=== PATIENT | male | born 1960 | race Caucasian/White ===

== ENCOUNTER 2023-04-24 04:50 | Inpatient (IN) | payer OTHER ==
[2023-04-24] VITALS (10 sets, daily range): BP systolic 163–203; BP diastolic 79–135
[~2023-04-24] VITALS: Ht 177.8 cm; Wt 126.7 kg
[2023-04-24 06:06] LABS: HEMATOCRIT 46.2 % (42.0-52.0); MEAN CELL VOLUME 88.2 fl (80.0-94.0); MEAN CORPUSCULAR HGB 28.2 pg (27.0-31.0); PLATELET COUNT AUTOMATED 129 10*3/uL (130-400); RED BLOOD COUNT 5.24 10*6/uL (4.50-5.90); RED CELL DISTRI WIDTH 17.5 % (0-14.5); WHITE BLOOD COUNT 10.8 10*3/uL (4.8-10.8)
[2023-04-24 06:07] LABS: ALKALINE PHOSPHATASE 84 U/L (46-116); BUN 23 mg/dl (9-23); CHLORIDE 102 mmol/L (98-107); LIPASE 43 U/L (12-53); POTASSIUM 4.1 mmol/L (3.4-5.1); SGPT/ALT 27 U/L (10-49); TOTAL PROTEIN 6.9 gm/dL (6.0-8.0)
[2023-04-24 06:12] LABS: BILIRUBIN Negative (Negative); BLOOD 1+ (Negative); CLARITY Clear (Clear); COLOR Dark Yellow (Yellow); GLUCOSE Negative (Negative); KETONE Trace (Negative); LEUKO ESTERASE Negative (Negative); NITRITE Negative (Negative); SPECIFIC GRAVITY 1.025 (1.001-1.030)
[2023-04-24 06:31] LABS: ACT PARTIAL THROMBO TIME 29.7 SECONDS (20.0-32.1); INTERNATIONAL NORM RATIO 1.3 (2.0-3.5)
[2023-04-24 06:38] LABS: BACTERIA 3+; RBC 21-30 rbc/hpf (0-2); URIC ACID CRYSTALS 1+
[2023-04-24 06:39] LABS: FINE GRANULAR CAST 16-20
[2023-04-24 06:51] LABS: BURR CELLS FEW; PLATELET SUFFICIENCY LOW (NORMAL); TOTAL CELLS COUNTED 100 #CELLS
[2023-04-24 06:52] LABS: MANUAL DIFF REFLEX YES
[2023-04-25] VITALS: BP 156/126
[2023-04-25 03:40] VITALS: BP 160/101
[2023-04-25 06:20] VITALS: BP 156/106
[2023-04-25 06:21] LABS: BASO % 0.4 % (0.0-1.0); EOS # 0.1 10*3/uL (0.0-0.4); EOS % 0.8 % (1.0-4.0); HEMATOCRIT 45.1 % (42.0-52.0); LYMPH % 9.8 % (27.0-41.0); MEAN CELL VOLUME 85.7 fl (80.0-94.0); MEAN CORPUSCULAR HGB 27.9 pg (27.0-31.0); MEAN CORPUSCULAR HGB CONC 32.6 g/dl (33.0-37.0); MEAN PLATELET VOLUME 12.8 fl (9.6-12.3); MONO % 9.6 % (3.0-9.0); NEUT # 8.1 10*3/uL (2.3-7.9); NEUT % 79.1 % (47.0-73.0); PLATELET COUNT AUTOMATED 123 10*3/uL (130-400); RED BLOOD COUNT 5.26 10*6/uL (4.50-5.90); RED CELL DISTRI WIDTH 17.8 % (0-14.5); WHITE BLOOD COUNT 10.2 10*3/uL (4.8-10.8)
[2023-04-25 06:54] LABS: ALKALINE PHOSPHATASE 75 U/L (46-116); BUN 18 mg/dl (9-23); CHLORIDE 98 mmol/L (98-107); CHOLESTEROL 119 mg/dL (<200); FREE T4 1.12 ng/dl (0.89-1.76); LDL CHOLESTEROL 78 mg/dL (9-159); POTASSIUM 3.4 mmol/L (3.4-5.1); SGPT/ALT 22 U/L (10-49); TOTAL PROTEIN 6.4 gm/dL (6.0-8.0); TRIGLYCERIDES 46 mg/dl (<150)
[2023-04-25 08:00] VITALS: BP 162/110
[2023-04-25 08:05] LABS: VITAMIN D, 25-HYDROXY 20.7 ng/mL (30-100)
[2023-04-25 16:00] VITALS: BP 144/102
[2023-04-25 20:00] VITALS: BP 148/95
[2023-04-26] VITALS: BP 135/85
[2023-04-26 07:35] LABS: HEMATOCRIT 48.7 % (42.0-52.0); MEAN CELL VOLUME 86.7 fl (80.0-94.0); MEAN CORPUSCULAR HGB 27.9 pg (27.0-31.0); MEAN CORPUSCULAR HGB CONC 32.2 g/dl (33.0-37.0); MEAN PLATELET VOLUME 13.4 fl (9.6-12.3); PLATELET COUNT AUTOMATED 145 10*3/uL (130-400); RED BLOOD COUNT 5.62 10*6/uL (4.50-5.90); RED CELL DISTRI WIDTH 17.6 % (0-14.5); WHITE BLOOD COUNT 9.8 10*3/uL (4.8-10.8)
[2023-04-26 07:42] LABS: BUN 17 mg/dl (9-23); CHLORIDE 98 mmol/L (98-107); POTASSIUM 3.3 mmol/L (3.4-5.1)
[2023-04-26 07:46] LABS: MANUAL DIFF REFLEX YES
[2023-04-26 08:00] VITALS: BP 124/69
[2023-04-26 08:37] LABS: PLATELET SUFFICIENCY NORMAL (NORMAL); TOTAL CELLS COUNTED 100 #CELLS
[2023-04-26 12:00] VITALS: BP 106/79
[2023-04-26 16:00] VITALS: BP 136/66
[2023-04-26 20:00] VITALS: BP 129/85
[2023-04-27] VITALS: BP 135/95
[2023-04-27 07:47] LABS: BUN 16 mg/dl (9-23); CHLORIDE 99 mmol/L (98-107); POTASSIUM 3.7 mmol/L (3.4-5.1)
[2023-04-27 08:00] VITALS: BP 146/75
[2023-04-27 12:00] VITALS: BP 121/66
[2023-04-27 16:00] VITALS: BP 137/92
[2023-04-27 20:00] VITALS: BP 137/92
[2023-04-28] VITALS: BP 138/95
[2023-04-28 06:36] LABS: HEMATOCRIT 48.5 % (42.0-52.0); MEAN CELL VOLUME 87.1 fl (80.0-94.0); MEAN CORPUSCULAR HGB 27.8 pg (27.0-31.0); MEAN PLATELET VOLUME 13.6 fl (9.6-12.3); PLATELET COUNT AUTOMATED 154 10*3/uL (130-400); RED BLOOD COUNT 5.57 10*6/uL (4.50-5.90); RED CELL DISTRI WIDTH 17.6 % (0-14.5); WHITE BLOOD COUNT 7.9 10*3/uL (4.8-10.8)
[2023-04-28 07:01] LABS: BUN 17 mg/dl (9-23); CHLORIDE 100 mmol/L (98-107); POTASSIUM 3.6 mmol/L (3.4-5.1)
[2023-04-28 07:46] LABS: BASOPHILS 1 % (0-1); PLATELET SUFFICIENCY NORMAL (NORMAL); TOTAL CELLS COUNTED 100 #CELLS
[2023-04-28 08:00] VITALS: BP 146/93
[2023-04-28 10:25] LABS: MANUAL DIFF REFLEX YES
[2023-04-28 12:00] VITALS: BP 133/75
[2023-04-28] MEDS ORDERED: ATORVASTATIN CA20 M1 PO (14:09)
[2023-04-28] MEDS ORDERED: JARDIANCE10 MG PO (14:09)
[2023-04-28] MEDS ORDERED: XARELTO1 EACH PO (14:09)
[2023-04-28] MEDS ORDERED: VITAMIN D350 MCG PO (14:09)
[2023-04-28] MEDS ORDERED: METOPROLOL SUC100 M1 PO (14:09)
[2023-04-28] MEDS ORDERED: ASPIRIN ADULT L81 M2 PO (14:09)
[2023-04-28] MEDS ORDERED: ALDACTONE25 MG PO (14:09)
[2023-04-28] MEDS ORDERED: FUROSEMIDE40 MG PO (14:09)
[2023-04-28] MEDS ORDERED: LOSARTAN POTAS100 M1 PO (14:15)
[2023-04-28 16:00] VITALS: BP 136/86
== END 2023-04-28 18:25 | disposition home or self-care (01) | DRG 291 ==
LOC: ED 04:50 → 4E 06:48 → EDHOLD 06:48 → 4E 20:32
PROVIDERS: Internal Medicine; Registered Nurse; Student in an Organized Health Care Education/Training Program; ADMIT Internal Medicine; ATTEND Internal Medicine
PROC: 4A02XM4 Measurement of Cardiac Total Activity, External Approach (ICD-10-PCS; principal; 2023-04-25)
PROC: 3E073KZ Introduction of Other Diagnostic Substance into Coronary Artery, Percutaneous Approach (ICD-10-PCS; 2023-04-25)
DX: I11.0 Hypertensive heart disease with heart failure (principal); I26.94 Multiple subsegmental thrombotic pulmonary emboli without acute cor pulmonale; I50.23 Acute on chronic systolic (congestive) heart failure; J18.9 Pneumonia, unspecified organism; N17.0 Acute kidney failure with tubular necrosis; N39.0 Urinary tract infection, site not specified; I82.412 Acute embolism and thrombosis of left femoral vein; I47.29 Other ventricular tachycardia; Z68.41 Body mass index [BMI] 40.0-44.9, adult; I16.0 Hypertensive urgency; E87.6 Hypokalemia; E66.01 Morbid (severe) obesity due to excess calories; E11.65 Type 2 diabetes mellitus with hyperglycemia; Z79.899 Other long term (current) drug therapy

== ENCOUNTER 2023-09-04 14:39 | Inpatient (IN) | payer OTHER ==
[~2023-09-04] VITALS: Ht 177.8 cm; Wt 135.2 kg
[2023-09-04] VITALS (9 sets, daily range): BP systolic 157–178; BP diastolic 82–115
[~2023-09-04 14:39] MED LIST: ALDACTONE25 MG PO; ASPIRIN ADULT L81 M2 PO; ATORVASTATIN CA20 M1 PO; FUROSEMIDE40 MG PO; JARDIANCE10 MG PO; LOSARTAN POTAS100 M1 PO; METOPROLOL SUC100 M1 PO; VITAMIN D350 MCG PO; XARELTO1 EACH PO
[2023-09-04 15:23] LABS: BASO # 0.1 10*3/uL (0.0-0.1); BASO % 0.9 % (0.0-1.0); EOS # 0.1 10*3/uL (0.0-0.4); EOS % 0.7 % (1.0-4.0); HEMATOCRIT 48.1 % (42.0-52.0); LYMPH # 0.6 10*3/uL (1.3-4.4); LYMPH % 7.1 % (27.0-41.0); MEAN CELL VOLUME 94.9 fl (80.0-94.0); MEAN CORPUSCULAR HGB 28.4 pg (27.0-31.0); MEAN CORPUSCULAR HGB CONC 29.9 g/dl (33.0-37.0); MEAN PLATELET VOLUME 12.6 fl (9.6-12.3); MONO # 0.5 10*3/uL (0.1-1.0); MONO % 5.6 % (3.0-9.0); NEUT # 7.5 10*3/uL (2.3-7.9); NEUT % 85.2 % (47.0-73.0); PLATELET COUNT AUTOMATED 196 10*3/uL (130-400); RED BLOOD COUNT 5.07 10*6/uL (4.50-5.90); RED CELL DISTRI WIDTH 16.7 % (0-14.5); WHITE BLOOD COUNT 8.8 10*3/uL (4.8-10.8)
[2023-09-04 15:38] LABS: ALKALINE PHOSPHATASE 75 U/L (46-116); BUN 21 mg/dl (9-23); CHLORIDE 102 mmol/L (98-107); POTASSIUM 4.5 mmol/L (3.4-5.1); SGPT/ALT 13 U/L (5-49)
[2023-09-04 15:59] LABS: ACT PARTIAL THROMBO TIME 26.3 SECONDS (20.0-32.1)
[2023-09-04] MEDS ORDERED: METOPROLOL SUCC50 M1 PO (16:52)
[2023-09-04] MEDS ORDERED: LASIX40 MG PO (16:52)
[2023-09-04] MEDS ORDERED: LOSARTAN POTAS100 M1 PO (16:52)
[2023-09-04] MEDS ORDERED: ALDACTONE25 M1 PO (16:53)
[2023-09-05] VITALS (8 sets, daily range): BP systolic 121–170; BP diastolic 68–115
[2023-09-05 06:15] LABS: HEMATOCRIT 48.1 % (42.0-52.0); MEAN CORPUSCULAR HGB 27.9 pg (27.0-31.0); MEAN CORPUSCULAR HGB CONC 30.4 g/dl (33.0-37.0); MEAN PLATELET VOLUME 12.4 fl (9.6-12.3); PLATELET COUNT AUTOMATED 214 10*3/uL (130-400); RED BLOOD COUNT 5.23 10*6/uL (4.50-5.90); RED CELL DISTRI WIDTH 16.4 % (0-14.5)
[2023-09-05 06:22] LABS: ALKALINE PHOSPHATASE 71 U/L (46-116); BUN 21 mg/dl (9-23); CHLORIDE 102 mmol/L (98-107); CHOLESTEROL 136 mg/dL (<200); FREE T4 0.98 ng/dl (0.89-1.76); LDL CHOLESTEROL 96 mg/dL (9-159); POTASSIUM 4.5 mmol/L (3.4-5.1); SGPT/ALT 11 U/L (5-49); TOTAL PROTEIN 7.1 gm/dL (6.0-8.0); TRIGLYCERIDES 64 mg/dl (<150)
[2023-09-05 06:25] LABS: MANUAL DIFF REFLEX YES
[2023-09-05 06:28] LABS: ACT PARTIAL THROMBO TIME 27.4 SECONDS (20.0-32.1)
[2023-09-05 07:24] LABS: VITAMIN D, 25-HYDROXY 16.6 ng/mL (30-100)
[2023-09-05 07:33] LABS: ATYPICAL LYMPHS 1 % (0-0); PLATELET SUFFICIENCY NORMAL (NORMAL); TOTAL CELLS COUNTED 100 #CELLS
[2023-09-05 13:17] LABS: ABG BASE EXCESS 5.1 mmol/L (-2.0-2.0); ARTERIAL BLOOD GAS PH 7.421 (7.35-7.45)
[2023-09-05 16:16] LABS: BF LYMPHOCYTES 10 %; BF MACROPHAGES 46 %; BF MESOTHELIALS 2 %; BF NEUTROPHILS 42 %
[2023-09-06] VITALS: BP 149/86
[2023-09-06 05:18] LABS: BUN 21 mg/dl (9-23); CHLORIDE 100 mmol/L (98-107); POTASSIUM 3.6 mmol/L (3.4-5.1)
[2023-09-06 06:18] LABS: BASO % 0.4 % (0.0-1.0); EOS # 0.1 10*3/uL (0.0-0.4); EOS % 0.6 % (1.0-4.0); HEMATOCRIT 45.6 % (42.0-52.0); LYMPH # 0.9 10*3/uL (1.3-4.4); LYMPH % 11.2 % (27.0-41.0); MEAN CELL VOLUME 91.6 fl (80.0-94.0); MEAN CORPUSCULAR HGB 27.9 pg (27.0-31.0); MEAN CORPUSCULAR HGB CONC 30.5 g/dl (33.0-37.0); MEAN PLATELET VOLUME 12.3 fl (9.6-12.3); MONO # 0.7 10*3/uL (0.1-1.0); MONO % 8.7 % (3.0-9.0); NEUT # 6.4 10*3/uL (2.3-7.9); NEUT % 78.9 % (47.0-73.0); PLATELET COUNT AUTOMATED 162 10*3/uL (130-400); RED BLOOD COUNT 4.98 10*6/uL (4.50-5.90); RED CELL DISTRI WIDTH 16.6 % (0-14.5); WHITE BLOOD COUNT 8.2 10*3/uL (4.8-10.8)
[2023-09-06 08:00] VITALS: BP 135/86
[2023-09-06 12:00] VITALS: BP 142/77
[2023-09-06 16:00] VITALS: BP 128/73
[2023-09-06 20:00] VITALS: BP 132/74
[2023-09-07] VITALS: BP 139/76
[2023-09-07 05:38] LABS: ALKALINE PHOSPHATASE 58 U/L (46-116); BUN 22 mg/dl (9-23); CHLORIDE 99 mmol/L (98-107); LDH 171 U/L (120-246); POTASSIUM 3.7 mmol/L (3.4-5.1); SGPT/ALT 11 U/L (5-49); TOTAL PROTEIN 6.2 gm/dL (6.0-8.0)
[2023-09-07 06:15] LABS: HEMATOCRIT 43.8 % (42.0-52.0); MEAN CELL VOLUME 92.6 fl (80.0-94.0); MEAN CORPUSCULAR HGB 27.7 pg (27.0-31.0); MEAN CORPUSCULAR HGB CONC 29.9 g/dl (33.0-37.0); MEAN PLATELET VOLUME 12.7 fl (9.6-12.3); PLATELET COUNT AUTOMATED 179 10*3/uL (130-400); RED BLOOD COUNT 4.73 10*6/uL (4.50-5.90); RED CELL DISTRI WIDTH 16.5 % (0-14.5); WHITE BLOOD COUNT 6.4 10*3/uL (4.8-10.8)
[2023-09-07 06:54] LABS: MANUAL DIFF REFLEX YES
[2023-09-07 06:57] LABS: BASOPHILS 1 % (0-1); PLATELET SUFFICIENCY NORMAL (NORMAL); TOTAL CELLS COUNTED 100 #CELLS
[2023-09-07 06:58] LABS: OVALOCYTES FEW
[2023-09-07 08:00] VITALS: BP 139/91
[2023-09-07 12:00] VITALS: BP 121/82
[2023-09-07 16:00] VITALS: BP 124/77
[2023-09-07 20:00] VITALS: BP 140/82
[2023-09-08] VITALS: BP 150/84; BP 160/90
[2023-09-08 06:27] LABS: BASO # 0.1 10*3/uL (0.0-0.1); BASO % 1.1 % (0.0-1.0); EOS # 0.2 10*3/uL (0.0-0.4); EOS % 3.2 % (1.0-4.0); HEMATOCRIT 46.3 % (42.0-52.0); LYMPH % 17.7 % (27.0-41.0); MEAN CELL VOLUME 94.1 fl (80.0-94.0); MEAN CORPUSCULAR HGB CONC 29.8 g/dl (33.0-37.0); MEAN PLATELET VOLUME 12.6 fl (9.6-12.3); MONO # 0.5 10*3/uL (0.1-1.0); MONO % 8.9 % (3.0-9.0); NEUT # 3.9 10*3/uL (2.3-7.9); NEUT % 68.6 % (47.0-73.0); PLATELET COUNT AUTOMATED 168 10*3/uL (130-400); RED BLOOD COUNT 4.92 10*6/uL (4.50-5.90); RED CELL DISTRI WIDTH 16.3 % (0-14.5); WHITE BLOOD COUNT 5.7 10*3/uL (4.8-10.8)
[2023-09-08 06:32] LABS: BUN 17 mg/dl (9-23); CHLORIDE 99 mmol/L (98-107); POTASSIUM 3.9 mmol/L (3.4-5.1)
[2023-09-08 08:00] VITALS: BP 160/87
[2023-09-08 12:00] VITALS: BP 135/79
[2023-09-08 16:00] VITALS: BP 134/76
[2023-09-08 20:00] VITALS: BP 138/70
[2023-09-09] VITALS: BP 161/90
[2023-09-09 05:47] LABS: BUN 18 mg/dl (9-23); CHLORIDE 97 mmol/L (98-107); POTASSIUM 4.2 mmol/L (3.4-5.1)
[2023-09-09 06:28] LABS: HEMATOCRIT 43.8 % (42.0-52.0); MEAN CELL VOLUME 93.4 fl (80.0-94.0); MEAN CORPUSCULAR HGB 27.9 pg (27.0-31.0); MEAN CORPUSCULAR HGB CONC 29.9 g/dl (33.0-37.0); MEAN PLATELET VOLUME 13.5 fl (9.6-12.3); PLATELET COUNT AUTOMATED 128 10*3/uL (130-400); RED BLOOD COUNT 4.69 10*6/uL (4.50-5.90); RED CELL DISTRI WIDTH 16.3 % (0-14.5); WHITE BLOOD COUNT 5.2 10*3/uL (4.8-10.8)
[2023-09-09 06:29] LABS: MANUAL DIFF REFLEX YES
[2023-09-09 07:43] LABS: BURR CELLS FEW; PLATELET SUFFICIENCY LOW (NORMAL); POLYCHROMASIA SLIGHT; TOTAL CELLS COUNTED 100 #CELLS
[2023-09-09 08:00] VITALS: BP 148/79
[2023-09-09 12:00] VITALS: BP 151/90
[2023-09-09 16:00] VITALS: BP 156/87
[2023-09-09 20:00] VITALS: BP 138/85
[2023-09-10] VITALS: BP 153/88
[2023-09-10 04:48] LABS: BUN 17 mg/dl (9-23); CHLORIDE 98 mmol/L (98-107); POTASSIUM 4.3 mmol/L (3.4-5.1)
[2023-09-10 06:34] LABS: BASO % 0.7 % (0.0-1.0); EOS # 0.2 10*3/uL (0.0-0.4); EOS % 3.2 % (1.0-4.0); HEMATOCRIT 42.9 % (42.0-52.0); LYMPH % 17.4 % (27.0-41.0); MEAN CELL VOLUME 93.5 fl (80.0-94.0); MEAN CORPUSCULAR HGB 28.5 pg (27.0-31.0); MEAN CORPUSCULAR HGB CONC 30.5 g/dl (33.0-37.0); MEAN PLATELET VOLUME 12.7 fl (9.6-12.3); MONO # 0.5 10*3/uL (0.1-1.0); NEUT % 70.2 % (47.0-73.0); PLATELET COUNT AUTOMATED 101 10*3/uL (130-400); RED BLOOD COUNT 4.59 10*6/uL (4.50-5.90); RED CELL DISTRI WIDTH 16.5 % (0-14.5); WHITE BLOOD COUNT 5.6 10*3/uL (4.8-10.8)
[2023-09-10 08:00] VITALS: BP 148/82
[2023-09-10 12:00] VITALS: BP 140/80
[2023-09-10 20:00] VITALS: BP 149/96
[2023-09-10 21:03] LABS: BILIRUBIN Negative (Negative); BLOOD Negative (Negative); CLARITY Clear (Clear); COLOR Yellow (Yellow); GLUCOSE Negative (Negative); KETONE Negative (Negative); LEUKO ESTERASE Negative (Negative); NITRITE Negative (Negative)
[2023-09-10 21:06] LABS: PH 8.5 (4.5-8.0)
[2023-09-10 21:14] LABS: BACTERIA 1+; RBC 0-2 rbc/hpf (0-2)
[2023-09-10 21:15] LABS: FINE GRANULAR CAST 0-2
[2023-09-11] VITALS: BP 156/93
[2023-09-11 05:59] LABS: BUN 16 mg/dl (9-23); CHLORIDE 98 mmol/L (98-107)
[2023-09-11 06:32] LABS: BASO # 0.1 10*3/uL (0.0-0.1); BASO % 0.9 % (0.0-1.0); EOS # 0.1 10*3/uL (0.0-0.4); EOS % 2.3 % (1.0-4.0); HEMATOCRIT 42.2 % (42.0-52.0); LYMPH % 18.1 % (27.0-41.0); MEAN CORPUSCULAR HGB 28.4 pg (27.0-31.0); MEAN CORPUSCULAR HGB CONC 30.6 g/dl (33.0-37.0); MEAN PLATELET VOLUME 12.7 fl (9.6-12.3); MONO # 0.6 10*3/uL (0.1-1.0); MONO % 10.3 % (3.0-9.0); NEUT # 3.8 10*3/uL (2.3-7.9); RED BLOOD COUNT 4.54 10*6/uL (4.50-5.90); RED CELL DISTRI WIDTH 16.7 % (0-14.5); WHITE BLOOD COUNT 5.6 10*3/uL (4.8-10.8)
[2023-09-11 06:56] LABS: PLATELET COUNT AUTOMATED 131 10*3/uL (130-400)
[2023-09-11 08:00] VITALS: BP 131/80
[2023-09-11 12:00] VITALS: BP 124/84
[2023-09-11 16:00] VITALS: BP 142/89
[2023-09-11 20:00] VITALS: BP 126/71
[2023-09-11 22:55] LABS: BUN 18 mg/dl (9-23); CHLORIDE 101 mmol/L (98-107); POTASSIUM 4.3 mmol/L (3.4-5.1)
[2023-09-12] VITALS: BP 118/74
[2023-09-12 05:05] LABS: BUN 17 mg/dl (9-23); CHLORIDE 100 mmol/L (98-107); POTASSIUM 4.4 mmol/L (3.4-5.1)
[2023-09-12 08:08] VITALS: BP 151/99
[2023-09-12 12:00] VITALS: BP 140/83
[2023-09-12 16:00] VITALS: BP 139/95
[2023-09-12 20:00] VITALS: BP 131/64
[2023-09-13] VITALS: BP 151/93
[2023-09-13 04:46] LABS: BUN 19 mg/dl (9-23); CHLORIDE 101 mmol/L (98-107); POTASSIUM 4.5 mmol/L (3.4-5.1)
[2023-09-13 08:00] VITALS: BP 140/91
[2023-09-13 12:00] VITALS: BP 132/68
[2023-09-13] MEDS ORDERED: ALDACTONE50 M1 PO (13:30)
[2023-09-13] MEDS ORDERED: OXYCODONE HCL5 M1 PO (13:35)
== END 2023-09-13 14:36 | disposition home or self-care (01) | DRG 291 ==
LOC: ED 14:39 → EDHOLD 09-05 04:24 → 5E 09-05 04:24
PROVIDERS: Family Medicine; Internal Medicine; Internal Medicine Critical Care Medicine; Student in an Organized Health Care Education/Training Program; ADMIT Family Medicine; ATTEND Family Medicine
PROC: 5A09357 Assistance with Respiratory Ventilation, Less than 24 Consecutive Hours, Continuous Positive Airway Pressure (ICD-10-PCS; principal; 2023-09-05)
PROC: 0W9B30Z Drainage of Left Pleural Cavity with Drainage Device, Percutaneous Approach (ICD-10-PCS; 2023-09-05)
DX: I50.23 Acute on chronic systolic (congestive) heart failure (principal); J96.01 Acute respiratory failure with hypoxia; J91.8 Pleural effusion in other conditions classified elsewhere; E44.0 Moderate protein-calorie malnutrition; I27.82 Chronic pulmonary embolism; I82.502 Chronic embolism and thrombosis of unspecified deep veins of left lower extremity; Z68.41 Body mass index [BMI] 40.0-44.9, adult; Z20.822 Contact with and (suspected) exposure to COVID-19; D75.89 Other specified diseases of blood and blood-forming organs; R73.9 Hyperglycemia, unspecified; D72.9 Disorder of white blood cells, unspecified

== ENCOUNTER 2023-11-16 15:12 | Inpatient (IN) | payer OTHER ==
[~2023-11-16] VITALS: Ht 177.8 cm; Wt 160.6 kg
[~2023-11-16 15:12] MED LIST changes: +ALDACTONE25 M1 PO; +ALDACTONE50 M1 PO; +LASIX40 MG PO; +METOPROLOL SUCC50 M1 PO; +OXYCODONE HCL5 M1 PO
[2023-11-16 15:15] VITALS: BP 167/112
[2023-11-16 15:56] LABS: BILIRUBIN Negative (Negative); BLOOD Negative (Negative); CLARITY Clear (Clear); COLOR Yellow (Yellow); GLUCOSE Negative (Negative); KETONE Negative (Negative); LEUKO ESTERASE Negative (Negative); NITRITE Negative (Negative)
[2023-11-16 16:01] LABS: BASO # 0.1 10*3/uL (0.0-0.1); BASO % 0.6 % (0.0-1.0); EOS # 0.2 10*3/uL (0.0-0.4); EOS % 2.6 % (1.0-4.0); HEMATOCRIT 47.4 % (42.0-52.0); LYMPH # 0.9 10*3/uL (1.3-4.4); LYMPH % 10.1 % (27.0-41.0); MEAN CELL VOLUME 93.9 fl (80.0-94.0); MEAN CORPUSCULAR HGB 28.3 pg (27.0-31.0); MEAN CORPUSCULAR HGB CONC 30.2 g/dl (33.0-37.0); MEAN PLATELET VOLUME 11.9 fl (9.6-12.3); MONO # 0.7 10*3/uL (0.1-1.0); MONO % 8.3 % (3.0-9.0); NEUT # 6.7 10*3/uL (2.3-7.9); NEUT % 78.2 % (47.0-73.0); PLATELET COUNT AUTOMATED 225 10*3/uL (130-400); RED BLOOD COUNT 5.05 10*6/uL (4.50-5.90); RED CELL DISTRI WIDTH 18.2 % (0-14.5); WHITE BLOOD COUNT 8.5 10*3/uL (4.8-10.8)
[2023-11-16 16:13] LABS: BACTERIA TRACE
[2023-11-16 16:14] LABS: EPITHELIAL CELLS 0-2; WBC 0-2 wbc/hpf (0-5)
[2023-11-16 16:15] LABS: POTASSIUM 4.3 mmol/L (3.4-5.1)
[2023-11-16 17:21] VITALS: BP 146/92
[2023-11-16] MEDS ORDERED: Ceftriaxone Sodium 1 GM/10 ML SYR IV ONE (18:10)
[2023-11-16] MEDS ORDERED: AZITHROMYCIN 250 ML IV ONE (18:10)
[2023-11-16] MEDS ORDERED: FUROSEMIDE 40 MG/4 ML VIAL IV ONE ×2 (18:15→22:20)
[2023-11-16] MEDS ORDERED: Metoprolol Tartrate 5 MG/5 ML VIAL IV ONE (18:15)
[2023-11-16] MEDS ORDERED: TORSEMIDE20 MG PO (18:30)
[2023-11-16] MEDS ORDERED: ALDACTONE50 M1 PO (18:35)
[2023-11-16 18:41] VITALS: BP 135/105
[2023-11-16] MEDS ORDERED: MORPHINE Sulfate 2 MG/ML SYR IV PRN (20:15)
[2023-11-16] MEDS ORDERED: TEMAZEPAM 15 MG CAP PO PRN (20:15)
[2023-11-16] MEDS ORDERED: BISACODYL 10 MG SUPP R PRN (20:15)
[2023-11-16] MEDS ORDERED: BISACODYL 5 MG TAB PO PRN (20:15)
[2023-11-16] MEDS ORDERED: Magnesium Hydroxide 30 ML UDC PO PRN (20:15)
[2023-11-16] MEDS ORDERED: Pantoprazole Sodium 40 MG TAB PO PRN (20:20)
[2023-11-16] MEDS ORDERED: APIXABAN 5 MG TAB PO SCH (20:20)
[2023-11-16] MEDS ORDERED: Metoclopramide Hydrochloride 5 MG TAB PO ONE (20:35)
[2023-11-16] MEDS ORDERED: diphenhydrAMINE hydrochloride 25 MG CAP PO ONE (20:35)
[2023-11-16 20:42] VITALS: BP 105/64
[2023-11-16 21:00] VITALS: BP 138/89
[2023-11-16] MEDS ORDERED: METOPROLOL SUCCINATE XR 50 MG TAB PO SCH (23:56)
[2023-11-17] VITALS: BP 138/98
[2023-11-17] MEDS ORDERED: METOPROLOL SUCCINATE XR 50 MG TAB PO SCH ×2 (00:40→10:00)
[2023-11-17] MEDS ORDERED: Doxycycline Hyclate 100 MG in SODIUM CHLORIDE 0.9% 250 ML IV SCH (06:00)
[2023-11-17] MEDS ORDERED: FUROSEMIDE 40 MG/4 ML VIAL IV SCH (06:00)
[2023-11-17 06:29] LABS: HEMATOCRIT 44.3 % (42.0-52.0); MEAN CELL VOLUME 92.9 fl (80.0-94.0); MEAN CORPUSCULAR HGB 28.7 pg (27.0-31.0); MEAN CORPUSCULAR HGB CONC 30.9 g/dl (33.0-37.0); PLATELET COUNT AUTOMATED 189 10*3/uL (130-400); RED BLOOD COUNT 4.77 10*6/uL (4.50-5.90); WHITE BLOOD COUNT 7.5 10*3/uL (4.8-10.8)
[2023-11-17 07:03] LABS: POTASSIUM 4.4 mmol/L (3.4-5.1)
[2023-11-17 07:43] LABS: MANUAL DIFF REFLEX YES
[2023-11-17 07:45] LABS: BASOPHILS 1 % (0-1); TOTAL CELLS COUNTED 100 #CELLS
[2023-11-17 07:46] LABS: BURR CELLS FEW; OVALOCYTES FEW; PLATELET SUFFICIENCY NORMAL (NORMAL)
[2023-11-17] MEDS ORDERED: SPIRONOLACTONE 25 MG TAB PO SCH (10:00)
[2023-11-17] MEDS ORDERED: METOPROLOL SUCCINATE XR 100 MG TAB PO SCH (10:00)
[2023-11-17] MEDS ORDERED: Losartan Potassium 50 MG TAB PO SCH (10:00)
[2023-11-17 12:00] VITALS: BP 138/105
[2023-11-17] MEDS ORDERED: hydrOXYzine pamoate 25 MG CAP PO ONE (12:20)
[2023-11-17 16:00] VITALS: BP 156/101
[2023-11-17] MEDS ORDERED: hydrOXYzine pamoate 25 MG CAP PO PRN (17:45)
[2023-11-17] MEDS ORDERED: Ceftriaxone Sodium 1 GM in SYRINGE INFUSION 10 ML IV SCH (18:00)
[2023-11-17 20:45] VITALS: BP 148/92
[2023-11-17] MEDS ORDERED: APIXABAN 5 MG TAB PO SCH (22:00)
[2023-11-18 06:13] LABS: POTASSIUM 4.4 mmol/L (3.4-5.1)
[2023-11-18 06:48] LABS: BASO # 0.1 10*3/uL (0.0-0.1); BASO % 0.8 % (0.0-1.0); EOS # 0.2 10*3/uL (0.0-0.4); EOS % 2.3 % (1.0-4.0); HEMATOCRIT 45.9 % (42.0-52.0); LYMPH # 1.1 10*3/uL (1.3-4.4); MEAN CELL VOLUME 92.4 fl (80.0-94.0); MEAN CORPUSCULAR HGB 28.2 pg (27.0-31.0); MEAN CORPUSCULAR HGB CONC 30.5 g/dl (33.0-37.0); MEAN PLATELET VOLUME 12.8 fl (9.6-12.3); MONO # 0.8 10*3/uL (0.1-1.0); MONO % 9.2 % (3.0-9.0); NEUT # 6.7 10*3/uL (2.3-7.9); NEUT % 75.2 % (47.0-73.0); PLATELET COUNT AUTOMATED 193 10*3/uL (130-400); RED BLOOD COUNT 4.97 10*6/uL (4.50-5.90); WHITE BLOOD COUNT 8.9 10*3/uL (4.8-10.8)
[2023-11-18 08:00] VITALS: BP 162/90
[2023-11-18] MEDS ORDERED: EMPAGLIFLOZIN 10 MG TABLET PO SCH (11:10)
[2023-11-18 12:00] VITALS: BP 172/80
[2023-11-18] MEDS ORDERED: hydrOXYzine pamoate 25 MG CAP PO PRN (15:52)
[2023-11-18 16:00] VITALS: BP 162/70
[2023-11-18 20:00] VITALS: BP 132/60
[2023-11-19] VITALS: BP 132/62
[2023-11-19 06:19] LABS: POTASSIUM 4.1 mmol/L (3.4-5.1)
[2023-11-19 07:34] LABS: BASO # 0.1 10*3/uL (0.0-0.1); BASO % 0.8 % (0.0-1.0); EOS # 0.3 10*3/uL (0.0-0.4); EOS % 3.4 % (1.0-4.0); HEMATOCRIT 46.5 % (42.0-52.0); LYMPH # 1.3 10*3/uL (1.3-4.4); LYMPH % 14.1 % (27.0-41.0); MEAN CELL VOLUME 90.6 fl (80.0-94.0); MEAN CORPUSCULAR HGB 28.1 pg (27.0-31.0); MEAN PLATELET VOLUME 12.5 fl (9.6-12.3); MONO # 0.7 10*3/uL (0.1-1.0); MONO % 7.4 % (3.0-9.0); NEUT % 73.9 % (47.0-73.0); PLATELET COUNT AUTOMATED 196 10*3/uL (130-400); RED BLOOD COUNT 5.13 10*6/uL (4.50-5.90); RED CELL DISTRI WIDTH 17.7 % (0-14.5); WHITE BLOOD COUNT 9.5 10*3/uL (4.8-10.8)
[2023-11-19 08:00] VITALS: BP 182/70
[2023-11-19 12:00] VITALS: BP 170/94
[2023-11-19 16:00] VITALS: BP 162/74
[2023-11-19] MEDS ORDERED: ELIQUIS5 M1 PO (16:39)
[2023-11-19] MEDS ORDERED: JARDIANCE10 MG PO (16:39)
[2023-11-19] MEDS ORDERED: VIBRAMYCIN HYC100 MG PO (16:39)
[2023-11-19] MEDS ORDERED: HYDROXYZINE HCL25 MG PO (16:39)
[2023-11-19] MEDS ORDERED: ALDACTONE25 MG PO (16:39)
[2023-11-19] MEDS ORDERED: TEMAZEPAM15 M1 PO (16:39)
[2023-11-20] MEDS ORDERED: SPIRONOLACTONE 25 MG TAB PO SCH (10:00)
== END 2023-11-19 17:28 | disposition home or self-care (01) | DRG 291 ==
LOC: ED 15:12 → EDHOLD 18:22 → 4E 18:22
PROVIDERS: Internal Medicine; Student in an Organized Health Care Education/Training Program; ADMIT Internal Medicine; ATTEND Internal Medicine
DX: I11.0 Hypertensive heart disease with heart failure (principal); I50.23 Acute on chronic systolic (congestive) heart failure; J18.9 Pneumonia, unspecified organism; N17.0 Acute kidney failure with tubular necrosis; I48.91 Unspecified atrial fibrillation; R73.9 Hyperglycemia, unspecified; R00.0 Tachycardia, unspecified; R91.8 Other nonspecific abnormal finding of lung field; I42.9 Cardiomyopathy, unspecified; E66.01 Morbid (severe) obesity due to excess calories; Z68.43 Body mass index [BMI] 50.0-59.9, adult; Z86.718 Personal history of other venous thrombosis and embolism; Z86.711 Personal history of pulmonary embolism; Z88.8 Allergy status to other drugs, medicaments and biological substances

== ENCOUNTER 2023-12-02 07:42 | Inpatient (IN) | payer OTHER ==
[~2023-12-02] VITALS: Ht 177.8 cm; Wt 137.1 kg
[~2023-12-02 07:42] MED LIST changes: +ELIQUIS5 M1 PO; +HYDROXYZINE HCL25 MG PO; -METOPROLOL SUCC50 M1 PO; +TEMAZEPAM15 M1 PO; +TORSEMIDE20 MG PO; +VIBRAMYCIN HYC100 MG PO
[2023-12-02 07:52] VITALS: BP 171/133
[2023-12-02 08:46] LABS: BASO # 0.1 10*3/uL (0.0-0.1); BASO % 0.6 % (0.0-1.0); EOS # 0.1 10*3/uL (0.0-0.4); EOS % 1.6 % (1.0-4.0); HEMATOCRIT 48.2 % (42.0-52.0); LYMPH % 11.6 % (27.0-41.0); MEAN CELL VOLUME 93.2 fl (80.0-94.0); MEAN CORPUSCULAR HGB 28.4 pg (27.0-31.0); MEAN CORPUSCULAR HGB CONC 30.5 g/dl (33.0-37.0); MEAN PLATELET VOLUME 11.9 fl (9.6-12.3); MONO # 0.5 10*3/uL (0.1-1.0); MONO % 6.4 % (3.0-9.0); NEUT # 6.5 10*3/uL (2.3-7.9); NEUT % 79.4 % (47.0-73.0); PLATELET COUNT AUTOMATED 205 10*3/uL (130-400); RED BLOOD COUNT 5.17 10*6/uL (4.50-5.90); RED CELL DISTRI WIDTH 17.7 % (0-14.5); WHITE BLOOD COUNT 8.2 10*3/uL (4.8-10.8)
[2023-12-02 08:56] LABS: ACT PARTIAL THROMBO TIME 27.1 SECONDS (20.0-32.1)
[2023-12-02 09:05] LABS: POTASSIUM 4.2 mmol/L (3.4-5.1); TOTAL PROTEIN 6.9 gm/dL (6.0-8.0)
[2023-12-02 09:10] VITALS: BP 159/110
[2023-12-02] MEDS ORDERED: FUROSEMIDE 40 MG/4 ML VIAL IV ONE (10:20)
[2023-12-02 10:33] LABS: BILIRUBIN Negative (Negative); BLOOD Negative (Negative); CLARITY Clear (Clear); COLOR Yellow (Yellow); GLUCOSE Negative (Negative); KETONE Negative (Negative); LEUKO ESTERASE Trace (Negative); NITRITE Negative (Negative)
[2023-12-02] MEDS ORDERED: SODIUM CHLORIDE 0.9% 1,000 ML IV ONE (11:05)
[2023-12-02 11:31] VITALS: BP 152/96
[2023-12-02] MEDS ORDERED: hydrOXYzine pamoate 25 MG CAP PO PRN (13:00)
[2023-12-02] MEDS ORDERED: TEMAZEPAM 15 MG CAP PO PRN (13:00)
[2023-12-02] MEDS ORDERED: Ondansetron Hydrochloride 4 MG/2 ML VIAL IV PRN (13:00)
[2023-12-02] MEDS ORDERED: BISACODYL 5 MG TAB PO PRN (13:00)
[2023-12-02] MEDS ORDERED: Losartan Potassium 50 MG TAB PO SCH (13:10)
[2023-12-02] MEDS ORDERED: METOPROLOL SUCCINATE XR 50 MG TAB PO SCH (13:10)
[2023-12-02] MEDS ORDERED: SPIRONOLACTONE 25 MG TAB PO SCH (13:10)
[2023-12-02] MEDS ORDERED: APIXABAN 5 MG TAB PO SCH (13:10)
[2023-12-02] MEDS ORDERED: EMPAGLIFLOZIN 10 MG TABLET PO SCH (13:10)
[2023-12-02 14:00] VITALS: BP 150/92
[2023-12-02] MEDS ORDERED: VITAMIN D350 MC2 PO (14:16)
[2023-12-02] MEDS ORDERED: ASPIRIN81 M1 PO (14:18)
[2023-12-02] MEDS ORDERED: METOPROLOL SUC100 M1 PO (15:38)
[2023-12-02 16:00] VITALS: BP 150/92
[2023-12-02] MEDS ORDERED: methylPREDNISolone sod succ 40 MG VIAL IV SCH (18:00)
[2023-12-02] MEDS ORDERED: FUROSEMIDE 40 MG/4 ML VIAL IV SCH (18:00)
[2023-12-02 20:00] VITALS: BP 140/100
[2023-12-03] VITALS: BP 144/109
[2023-12-03] MEDS ORDERED: FOAM BANDAGE 4X4 T ONE (01:01)
[2023-12-03 05:26] LABS: POTASSIUM 4.6 mmol/L (3.4-5.1)
[2023-12-03 06:22] LABS: BASO % 0.2 % (0.0-1.0); HEMATOCRIT 48.5 % (42.0-52.0); LYMPH # 0.6 10*3/uL (1.3-4.4); LYMPH % 9.8 % (27.0-41.0); MEAN CELL VOLUME 92.7 fl (80.0-94.0); MEAN CORPUSCULAR HGB 28.5 pg (27.0-31.0); MEAN CORPUSCULAR HGB CONC 30.7 g/dl (33.0-37.0); MEAN PLATELET VOLUME 12.5 fl (9.6-12.3); MONO # 0.1 10*3/uL (0.1-1.0); MONO % 1.2 % (3.0-9.0); NEUT # 5.2 10*3/uL (2.3-7.9); NEUT % 88.5 % (47.0-73.0); PLATELET COUNT AUTOMATED 181 10*3/uL (130-400); RED BLOOD COUNT 5.23 10*6/uL (4.50-5.90); RED CELL DISTRI WIDTH 18.3 % (0-14.5); WHITE BLOOD COUNT 5.8 10*3/uL (4.8-10.8)
[2023-12-03 08:00] VITALS: BP 138/92
[2023-12-03] MEDS ORDERED: Cholecalciferol 2,000 UNIT TABLET (50 MCG) PO SCH (10:00)
[2023-12-03 12:00] VITALS: BP 144/94
[2023-12-03 16:00] VITALS: BP 151/111
[2023-12-03] MEDS ORDERED: FUROSEMIDE 40 MG/4 ML VIAL IV SCH (18:00)
[2023-12-03 20:00] VITALS: BP 156/112
[2023-12-04] VITALS: BP 143/109
[2023-12-04] MEDS ORDERED: Albuterol Sulf/Ipratropium 3 ML VIAL NEB PRN (00:25)
[2023-12-04 07:38] LABS: POTASSIUM 4.5 mmol/L (3.4-5.1)
[2023-12-04 08:00] VITALS: BP 143/100
[2023-12-04 09:01] LABS: HEMATOCRIT 48.2 % (42.0-52.0); MEAN CORPUSCULAR HGB 28.4 pg (27.0-31.0); MEAN CORPUSCULAR HGB CONC 30.9 g/dl (33.0-37.0); MEAN PLATELET VOLUME 12.5 fl (9.6-12.3); PLATELET COUNT AUTOMATED 207 10*3/uL (130-400); RED BLOOD COUNT 5.24 10*6/uL (4.50-5.90); RED CELL DISTRI WIDTH 18.6 % (0-14.5); WHITE BLOOD COUNT 12.6 10*3/uL (4.8-10.8)
[2023-12-04 09:02] LABS: MANUAL DIFF REFLEX YES
[2023-12-04 09:03] LABS: BURR CELLS FEW; POLYCHROMASIA SLIGHT; SCHISTOCYTES FEW; TOTAL CELLS COUNTED 100 #CELLS; TOXIC GRANULATION SLIGHT; VACUOLATION OF NEUTROPHILS SLIGHT
[2023-12-04 09:04] LABS: PLATELET SUFFICIENCY NORMAL (NORMAL); ROULEAUX SLIGHT
[2023-12-04] MEDS ORDERED: ALBUMIN 25% 100 ML IV SCH (10:35)
[2023-12-04 11:24] LABS: BF LYMPHOCYTES 15 %; BF MACROPHAGES 65 %; BF MESOTHELIALS 3 %; BF NEUTROPHILS 17 %
[2023-12-04 12:00] VITALS: BP 153/100
[2023-12-04] MEDS ORDERED: METOLAZONE 5 MG TAB PO ONE (15:40)
[2023-12-04 16:00] VITALS: BP 145/93
[2023-12-04 20:00] VITALS: BP 147/106
[2023-12-04] MEDS ORDERED: APIXABAN 5 MG TAB PO SCH (22:00)
[2023-12-05] VITALS (8 sets, daily range): BP systolic 120–151; BP diastolic 89–113
[2023-12-05 06:18] LABS: HEMATOCRIT 45.4 % (42.0-52.0); MEAN CELL VOLUME 91.5 fl (80.0-94.0); MEAN CORPUSCULAR HGB 28.6 pg (27.0-31.0); MEAN CORPUSCULAR HGB CONC 31.3 g/dl (33.0-37.0); MEAN PLATELET VOLUME 12.2 fl (9.6-12.3); PLATELET COUNT AUTOMATED 188 10*3/uL (130-400); RED BLOOD COUNT 4.96 10*6/uL (4.50-5.90); RED CELL DISTRI WIDTH 18.1 % (0-14.5); WHITE BLOOD COUNT 10.5 10*3/uL (4.8-10.8)
[2023-12-05 06:19] LABS: MANUAL DIFF REFLEX YES
[2023-12-05 06:46] LABS: POTASSIUM 4.5 mmol/L (3.4-5.1)
[2023-12-05 06:58] LABS: PLATELET SUFFICIENCY NORMAL (NORMAL); TOTAL CELLS COUNTED 100 #CELLS
[2023-12-05 06:59] LABS: ROULEAUX SLIGHT
[2023-12-05 10:08] LABS: ACID FAST SPEC PROCESSING Concentration (.)
[2023-12-05] MEDS ORDERED: SODIUM CHLORIDE 0.9% 1,000 ML IV ONE (12:49)
[2023-12-05] MEDS ORDERED: PROPOFOL 200 MG/20 ML VIAL IV ONE (14:43)
[2023-12-05] MEDS ORDERED: Ketamine Hydrochloride 50 MG/5 ML SYRINGE IV ONE (14:43)
[2023-12-05] MEDS ORDERED: Midazolam Hydrochloride 2 MG/2 ML VIAL IV ONE (14:43)
[2023-12-05 23:13] LABS: POTASSIUM 4.1 mmol/L (3.4-5.1)
[2023-12-06 00:20] VITALS: BP 98/60
[2023-12-06 07:18] LABS: HEMATOCRIT 47.1 % (42.0-52.0); MEAN CORPUSCULAR HGB 28.5 pg (27.0-31.0); MEAN PLATELET VOLUME 12.8 fl (9.6-12.3); PLATELET COUNT AUTOMATED 203 10*3/uL (130-400); RED BLOOD COUNT 5.12 10*6/uL (4.50-5.90); RED CELL DISTRI WIDTH 18.1 % (0-14.5); WHITE BLOOD COUNT 10.4 10*3/uL (4.8-10.8)
[2023-12-06 07:22] LABS: MANUAL DIFF REFLEX YES
[2023-12-06 07:41] LABS: POLYCHROMASIA SLIGHT; TOTAL CELLS COUNTED 100 #CELLS; TOXIC GRANULATION SLIGHT; VACUOLATION OF NEUTROPHILS SLIGHT
[2023-12-06 07:42] LABS: BURR CELLS FEW; OVALOCYTES FEW; PLATELET SUFFICIENCY NORMAL (NORMAL); ROULEAUX SLIGHT; TARGET CELLS FEW
[2023-12-06 07:53] LABS: POTASSIUM 4.5 mmol/L (3.4-5.1)
[2023-12-06 08:00] VITALS: BP 142/95
[2023-12-06] MEDS ORDERED: METOLAZONE 5 MG TAB PO SCH (09:30)
[2023-12-06 12:00] VITALS: BP 138/99
[2023-12-06 16:00] VITALS: BP 151/99
[2023-12-06 20:00] VITALS: BP 144/97
[2023-12-06 23:28] LABS: POTASSIUM 4.2 mmol/L (3.4-5.1)
[2023-12-07] VITALS: BP 150/93
[2023-12-07 05:20] LABS: POTASSIUM 3.5 mmol/L (3.4-5.1)
[2023-12-07 07:36] LABS: HEMATOCRIT 45.2 % (42.0-52.0); MEAN CELL VOLUME 90.9 fl (80.0-94.0); MEAN CORPUSCULAR HGB 28.8 pg (27.0-31.0); MEAN CORPUSCULAR HGB CONC 31.6 g/dl (33.0-37.0); MEAN PLATELET VOLUME 12.7 fl (9.6-12.3); RED BLOOD COUNT 4.97 10*6/uL (4.50-5.90); RED CELL DISTRI WIDTH 17.6 % (0-14.5); WHITE BLOOD COUNT 10.1 10*3/uL (4.8-10.8)
[2023-12-07 07:42] LABS: MANUAL DIFF REFLEX YES; PLATELET COUNT AUTOMATED 178 10*3/uL (130-400)
[2023-12-07 07:53] LABS: POLYCHROMASIA SLIGHT; TARGET CELLS FEW; TOTAL CELLS COUNTED 100 #CELLS
[2023-12-07 07:54] LABS: BURR CELLS FEW; PLATELET SUFFICIENCY NORMAL (NORMAL); ROULEAUX SLIGHT
[2023-12-07 08:00] VITALS: BP 139/93
[2023-12-07 12:00] VITALS: BP 142/88
[2023-12-07 15:51] VITALS: BP 141/84
[2023-12-07 20:00] VITALS: BP 144/88
[2023-12-08] VITALS: BP 138/86
[2023-12-08 08:00] VITALS: BP 148/88
[2023-12-08] MEDS ORDERED: PREDNISONE10 MG PO (11:42)
[2023-12-08] MEDS ORDERED: SOAANZ20 M1 PO (11:42)
[2023-12-08] MEDS ORDERED: VITAMIN D350 MCG PO (11:42)
[2023-12-08] MEDS ORDERED: SOAANZ40 M1 PO (11:42)
[2023-12-08 12:00] VITALS: BP 161/108
[2023-12-09 05:06] LABS: HBSAG Negative (Negative); HEP B CORE AB, IGM Negative (Negative); HEPATITIS C ANTIBODY Non Reactive (Non Reactive)
== END 2023-12-08 15:58 | disposition home or self-care (01) | DRG 291 ==
LOC: ED 07:42 → EDHOLD 10:24 → 5E 10:24 → EDHOLD 13:03 → 5E 13:46
PROVIDERS: Emergency Medicine; Family Medicine; Internal Medicine; Internal Medicine Infectious Disease; Registered Nurse; Student in an Organized Health Care Education/Training Program; ADMIT Internal Medicine; ATTEND Internal Medicine
PROC: 0W9G3ZZ Drainage of Peritoneal Cavity, Percutaneous Approach (ICD-10-PCS; principal; 2023-12-04)
PROC: 5A2204Z Restoration of Cardiac Rhythm, Single (ICD-10-PCS; 2023-12-05)
PROC: B24BZZ4 Ultrasonography of Heart with Aorta, Transesophageal (ICD-10-PCS; 2023-12-05)
DX: I11.0 Hypertensive heart disease with heart failure (principal); I50.23 Acute on chronic systolic (congestive) heart failure; N17.0 Acute kidney failure with tubular necrosis; R18.8 Other ascites; Z68.43 Body mass index [BMI] 50.0-59.9, adult; G47.00 Insomnia, unspecified; E55.9 Vitamin D deficiency, unspecified; I48.0 Paroxysmal atrial fibrillation; E66.01 Morbid (severe) obesity due to excess calories; Z86.711 Personal history of pulmonary embolism; Z86.718 Personal history of other venous thrombosis and embolism

== ENCOUNTER 2024-05-06 13:36 | Inpatient (IN) | payer MEDICAID ==
[~2024-05-06] VITALS: Ht 177.8 cm; Wt 143.9 kg
[~2024-05-06 13:36] MED LIST changes: +ASPIRIN81 M1 PO; +PREDNISONE10 MG PO; +SOAANZ20 M1 PO; +SOAANZ40 M1 PO; +VITAMIN D350 MC2 PO
[2024-05-06 14:14] VITALS: BP 173/113
[2024-05-06 14:37] VITALS: BP 122/88
[2024-05-06 15:01] LABS: BASO # 0.1 10*3/uL (0.0-0.1); BASO % 0.7 % (0.0-1.0); EOS # 0.2 10*3/uL (0.0-0.4); EOS % 2.1 % (1.0-4.0); HEMATOCRIT 46.1 % (42.0-52.0); LYMPH % 11.9 % (27.0-41.0); MEAN CELL VOLUME 90.4 fl (80.0-94.0); MEAN CORPUSCULAR HGB 27.6 pg (27.0-31.0); MEAN CORPUSCULAR HGB CONC 30.6 g/dl (33.0-37.0); MEAN PLATELET VOLUME 11.8 fl (9.6-12.3); MONO # 0.5 10*3/uL (0.1-1.0); MONO % 6.3 % (3.0-9.0); NEUT # 6.4 10*3/uL (2.3-7.9); NEUT % 78.8 % (47.0-73.0); PLATELET COUNT AUTOMATED 178 10*3/uL (130-400); RED CELL DISTRI WIDTH 17.3 % (0-14.5); WHITE BLOOD COUNT 8.2 10*3/uL (4.8-10.8)
[2024-05-06 15:08] LABS: BILIRUBIN Negative (Negative); BLOOD Negative (Negative); CLARITY Clear (Clear); COLOR Yellow (Yellow); GLUCOSE 3+ (Negative); KETONE Negative (Negative); LEUKO ESTERASE Negative (Negative); NITRITE Negative (Negative)
[2024-05-06 15:15] LABS: HYALINE CAST 0-2; MUCOUS 1+; WBC 0-2 wbc/hpf (0-5)
[2024-05-06 15:22] LABS: ALKALINE PHOSPHATASE 98 U/L (46-116); BUN 19 mg/dl (9-23); CHLORIDE 104 mmol/L (98-107); SGPT/ALT 8 U/L (5-49); TOTAL PROTEIN 7.2 gm/dL (6.0-8.0)
[2024-05-06] MEDS ORDERED: BUMETANIDE 1 MG/4 ML VIAL IV ONE (15:50)
[2024-05-06 17:03] VITALS: BP 148/95
[2024-05-06 17:05] VITALS: BP 155/94
[2024-05-06] MEDS ORDERED: BISACODYL 10 MG SUPP R PRN (17:50)
[2024-05-06] MEDS ORDERED: BISACODYL 5 MG TAB PO PRN (17:50)
[2024-05-06] MEDS ORDERED: Magnesium Hydroxide 30 ML UDC PO PRN (17:50)
[2024-05-06] MEDS ORDERED: ELIQUIS5 M1 PO (18:08)
[2024-05-06] MEDS ORDERED: SERTRALINE HYDR50 MG PO (18:10)
[2024-05-06] MEDS ORDERED: TRAZODONE50 MG PO (18:11)
[2024-05-06] MEDS ORDERED: TEMAZEPAM 15 MG CAP PO PRN (19:00)
[2024-05-06] MEDS ORDERED: CARVEDILOL3.125 MG PO (19:03)
[2024-05-06] MEDS ORDERED: SPIRONOLACTONE50 M1 PO (19:03)
[2024-05-06 20:00] VITALS: BP 147/103
[2024-05-06] MEDS ORDERED: CARVEDILOL 3.125 MG TAB PO SCH (22:00)
[2024-05-06] MEDS ORDERED: Albuterol Sulf/Ipratropium 3 ML VIAL NEB ONE (23:40)
[2024-05-07 00:23] VITALS: BP 126/71
[2024-05-07] MEDS ORDERED: hydrOXYzine 50 MG CAP PO PRN (01:25)
[2024-05-07 06:28] LABS: BASO # 0.1 10*3/uL (0.0-0.1); BASO % 0.8 % (0.0-1.0); EOS # 0.2 10*3/uL (0.0-0.4); EOS % 1.8 % (1.0-4.0); HEMATOCRIT 46.2 % (42.0-52.0); LYMPH # 1.1 10*3/uL (1.3-4.4); LYMPH % 11.9 % (27.0-41.0); MEAN CELL VOLUME 90.6 fl (80.0-94.0); MEAN CORPUSCULAR HGB 27.6 pg (27.0-31.0); MEAN CORPUSCULAR HGB CONC 30.5 g/dl (33.0-37.0); MEAN PLATELET VOLUME 12.2 fl (9.6-12.3); MONO # 0.8 10*3/uL (0.1-1.0); NEUT # 7.1 10*3/uL (2.3-7.9); NEUT % 75.4 % (47.0-73.0); PLATELET COUNT AUTOMATED 177 10*3/uL (130-400); RED CELL DISTRI WIDTH 17.5 % (0-14.5); WHITE BLOOD COUNT 9.4 10*3/uL (4.8-10.8)
[2024-05-07 06:49] LABS: POTASSIUM 4.3 mmol/L (3.4-5.1)
[2024-05-07 08:00] VITALS: BP 131/100
[2024-05-07] MEDS ORDERED: Losartan Potassium 50 MG TAB PO SCH (10:00)
[2024-05-07] MEDS ORDERED: FUROSEMIDE 40 MG/4 ML VIAL IV SCH (10:00)
[2024-05-07] MEDS ORDERED: EMPAGLIFLOZIN 10 MG TABLET PO SCH (10:00)
[2024-05-07] MEDS ORDERED: Cholecalciferol 2,000 UNIT TABLET (50 MCG) PO SCH (10:00)
[2024-05-07] MEDS ORDERED: Sertraline Hydrochloride 50 MG TAB PO SCH (10:00)
[2024-05-07 11:07] VITALS: BP 140/98
[2024-05-07] MEDS ORDERED: BENZONATATE 100 MG CAP PO PRN (11:30)
[2024-05-07 12:22] VITALS: BP 130/90
[2024-05-07] MEDS ORDERED: PERFLUTREN PROTEIN-A MICROSPHR 3 ML VIAL IV ONE (15:30)
[2024-05-07 16:00] VITALS: BP 128/91
[2024-05-07] MEDS ORDERED: LORazepam 1 MG TAB PO ONE (16:50)
[2024-05-07 20:00] VITALS: BP 140/89
[2024-05-07] MEDS ORDERED: APIXABAN 5 MG TAB PO SCH (22:00)
[2024-05-07] MEDS ORDERED: Albuterol Sulf/Ipratropium 3 ML VIAL NEB PRN (23:10)
[2024-05-07] MEDS ORDERED: Albuterol Sulf/Ipratropium 3 ML VIAL NEB ONE (23:26)
[2024-05-08] VITALS: BP 148/94
[2024-05-08 06:36] LABS: BASO # 0.1 10*3/uL (0.0-0.1); BASO % 0.8 % (0.0-1.0); EOS # 0.2 10*3/uL (0.0-0.4); EOS % 2.8 % (1.0-4.0); HEMATOCRIT 46.6 % (42.0-52.0); LYMPH # 1.2 10*3/uL (1.3-4.4); LYMPH % 14.3 % (27.0-41.0); MEAN CORPUSCULAR HGB 27.2 pg (27.0-31.0); MEAN CORPUSCULAR HGB CONC 30.3 g/dl (33.0-37.0); MEAN PLATELET VOLUME 12.7 fl (9.6-12.3); MONO # 0.7 10*3/uL (0.1-1.0); NEUT # 6.1 10*3/uL (2.3-7.9); NEUT % 73.7 % (47.0-73.0); PLATELET COUNT AUTOMATED 159 10*3/uL (130-400); RED BLOOD COUNT 5.18 10*6/uL (4.50-5.90); WHITE BLOOD COUNT 8.2 10*3/uL (4.8-10.8)
[2024-05-08 06:47] LABS: POTASSIUM 4.2 mmol/L (3.4-5.1)
[2024-05-08 08:00] VITALS: BP 137/94
[2024-05-08 12:00] VITALS: BP 141/95
[2024-05-08] MEDS ORDERED: Benzocaine/Menthol 1 LOZ LOZENGE PO PRN (14:15)
[2024-05-08] MEDS ORDERED: LORazepam 1 MG TAB PO PRN (14:15)
[2024-05-08 16:00] VITALS: BP 155/96
[2024-05-08] MEDS ORDERED: FUROSEMIDE 40 MG/4 ML VIAL IV SCH (18:00)
[2024-05-08 20:00] VITALS: BP 144/91
[2024-05-09] VITALS: BP 120/97
[2024-05-09] MEDS ORDERED: Ketorolac Tromethamine 15 MG/ML VIAL IV ONE (00:45)
[2024-05-09 07:08] LABS: BASO # 0.1 10*3/uL (0.0-0.1); BASO % 0.9 % (0.0-1.0); EOS # 0.2 10*3/uL (0.0-0.4); EOS % 2.4 % (1.0-4.0); HEMATOCRIT 46.5 % (42.0-52.0); LYMPH # 1.1 10*3/uL (1.3-4.4); MEAN CELL VOLUME 89.6 fl (80.0-94.0); MEAN CORPUSCULAR HGB 27.7 pg (27.0-31.0); MEAN PLATELET VOLUME 12.4 fl (9.6-12.3); MONO # 0.6 10*3/uL (0.1-1.0); MONO % 7.6 % (3.0-9.0); NEUT # 6.4 10*3/uL (2.3-7.9); NEUT % 75.9 % (47.0-73.0); PLATELET COUNT AUTOMATED 183 10*3/uL (130-400); RED BLOOD COUNT 5.19 10*6/uL (4.50-5.90); RED CELL DISTRI WIDTH 17.4 % (0-14.5); WHITE BLOOD COUNT 8.5 10*3/uL (4.8-10.8)
[2024-05-09 08:00] VITALS: BP 129/96
[2024-05-09 12:00] VITALS: BP 122/91
[2024-05-09 16:00] VITALS: BP 101/65
[2024-05-09 20:00] VITALS: BP 122/86
[2024-05-10] VITALS: BP 133/93
[2024-05-10 06:56] LABS: POTASSIUM 3.7 mmol/L (3.4-5.1)
[2024-05-10 07:09] LABS: BASO # 0.1 10*3/uL (0.0-0.1); BASO % 1.1 % (0.0-1.0); EOS # 0.3 10*3/uL (0.0-0.4); EOS % 3.5 % (1.0-4.0); HEMATOCRIT 44.4 % (42.0-52.0); LYMPH # 1.1 10*3/uL (1.3-4.4); LYMPH % 13.9 % (27.0-41.0); MEAN CORPUSCULAR HGB 27.7 pg (27.0-31.0); MEAN CORPUSCULAR HGB CONC 30.4 g/dl (33.0-37.0); MEAN PLATELET VOLUME 11.9 fl (9.6-12.3); MONO # 0.8 10*3/uL (0.1-1.0); MONO % 9.6 % (3.0-9.0); NEUT # 5.9 10*3/uL (2.3-7.9); NEUT % 71.5 % (47.0-73.0); PLATELET COUNT AUTOMATED 186 10*3/uL (130-400); RED BLOOD COUNT 4.88 10*6/uL (4.50-5.90); RED CELL DISTRI WIDTH 17.5 % (0-14.5); WHITE BLOOD COUNT 8.2 10*3/uL (4.8-10.8)
[2024-05-10 08:00] VITALS: BP 138/96
[2024-05-10 12:00] VITALS: BP 119/81
[2024-05-10 16:00] VITALS: BP 122/77
[2024-05-10] MEDS ORDERED: SACUBITRIL/VALSARTAN 49 MG-51 MG TABLET PO SCH (18:00)
[2024-05-10 20:00] VITALS: BP 119/85
[2024-05-11 00:08] VITALS: BP 127/83
[2024-05-11 06:24] LABS: BASO # 0.1 10*3/uL (0.0-0.1); BASO % 0.7 % (0.0-1.0); EOS # 0.2 10*3/uL (0.0-0.4); EOS % 2.6 % (1.0-4.0); HEMATOCRIT 44.6 % (42.0-52.0); LYMPH # 1.3 10*3/uL (1.3-4.4); LYMPH % 15.1 % (27.0-41.0); MEAN CORPUSCULAR HGB 27.9 pg (27.0-31.0); MEAN CORPUSCULAR HGB CONC 32.3 g/dl (33.0-37.0); MEAN PLATELET VOLUME 12.8 fl (9.6-12.3); MONO # 0.7 10*3/uL (0.1-1.0); MONO % 8.5 % (3.0-9.0); NEUT # 6.2 10*3/uL (2.3-7.9); NEUT % 72.9 % (47.0-73.0); PLATELET COUNT AUTOMATED 132 10*3/uL (130-400); RED BLOOD COUNT 5.17 10*6/uL (4.50-5.90); RED CELL DISTRI WIDTH 18.1 % (0-14.5); WHITE BLOOD COUNT 8.5 10*3/uL (4.8-10.8)
[2024-05-11 06:25] LABS: MEAN CELL VOLUME 86.3 fl (80.0-94.0)
[2024-05-11 06:58] LABS: BUN 29 mg/dl (9-23); CHLORIDE 102 mmol/L (98-107); POTASSIUM 3.9 mmol/L (3.4-5.1)
[2024-05-11 08:00] VITALS: BP 128/72
[2024-05-11] MEDS ORDERED: ENTRESTO 49 MG1 EACH PO (10:33)
== END 2024-05-11 12:13 | disposition home or self-care (01) | DRG 194 ==
LOC: ED 13:36 → EDHOLD 16:40 → 4E 16:40
PROVIDERS: Physician Assistant Medical; Student in an Organized Health Care Education/Training Program; ADMIT Internal Medicine; ATTEND Internal Medicine
PROC: 5A09357 Assistance with Respiratory Ventilation, Less than 24 Consecutive Hours, Continuous Positive Airway Pressure (ICD-10-PCS; principal; 2024-05-10)
DX: I13.0 Hypertensive heart and chronic kidney disease with heart failure and stage 1 through stage 4 chronic kidney disease, or unspecified chronic kidney disease (principal); N17.0 Acute kidney failure with tubular necrosis; I82.512 Chronic embolism and thrombosis of left femoral vein; R18.8 Other ascites; I50.21 Acute systolic (congestive) heart failure; I16.0 Hypertensive urgency; E66.01 Morbid (severe) obesity due to excess calories; I07.1 Rheumatic tricuspid insufficiency; K76.0 Fatty (change of) liver, not elsewhere classified; N18.31 Chronic kidney disease, stage 3a; G47.00 Insomnia, unspecified; F41.9 Anxiety disorder, unspecified; I48.21 Permanent atrial fibrillation; K57.30 Diverticulosis of large intestine without perforation or abscess without bleeding; I45.81 Long QT syndrome; I48.20 Chronic atrial fibrillation, unspecified; R73.9 Hyperglycemia, unspecified; E55.9 Vitamin D deficiency, unspecified; E80.7 Disorder of bilirubin metabolism, unspecified; Z68.41 Body mass index [BMI] 40.0-44.9, adult; Z86.711 Personal history of pulmonary embolism; Z79.01 Long term (current) use of anticoagulants; Z88.6 Allergy status to analgesic agent; Z79.899 Other long term (current) drug therapy

== ENCOUNTER → 2024-07-20 | Outpatient (CLI) | payer MEDICAID ==
[~2024-07-20] MED LIST changes: +ALBUMIN 25% 100 ML IV SCH; +CARVEDILOL3.125 MG PO; +ENTRESTO 49 MG1 EACH PO; +SERTRALINE HYDR50 MG PO; +SODIUM BICARBONATE 4.2% 5 ML VIAL ONE; +SPIRONOLACTONE50 M1 PO; +TRAZODONE50 MG PO
[2024-07-20 14:08] LABS: ACT PARTIAL THROMBO TIME 28.4 SECONDS (20.0-32.1)
[2024-07-20 16:21] VITALS: BP 147/94
== END | disposition home or self-care (01) ==
LOC: LAB 02:44 → EDSTATUS 11:00
PROVIDERS: Radiology Diagnostic Radiology; ATTEND Internal Medicine
DX: R18.8 Other ascites (principal); I11.0 Hypertensive heart disease with heart failure; I50.20 Unspecified systolic (congestive) heart failure; I48.91 Unspecified atrial fibrillation; F41.1 Generalized anxiety disorder; E55.9 Vitamin D deficiency, unspecified; G47.00 Insomnia, unspecified; Z79.899 Other long term (current) drug therapy; Z88.8 Allergy status to other drugs, medicaments and biological substances; Z82.49 Family history of ischemic heart disease and other diseases of the circulatory system